=== PATIENT | male | born 1995 | race Caucasian/White ===

== ENCOUNTER 2019-03-01 20:14 | Emergency (ER) | payer OTHER, MEDICAID ==
[2019-03-01] MEDS: LORAZEPAM 1 MG TAB PO (22:06)
[2019-03-01] MEDS: KETOROLAC 60 MG INJ IM (22:06)
== END 2019-03-01 23:49 | disposition home or self-care (01) ==
LOC: FTE 20:14
DX: M54.5 Low back pain (principal); R10.9 Unspecified abdominal pain; F17.210 Nicotine dependence, cigarettes, uncomplicated
CPT/HCPCS: 71250; 74176; 96372; 99285-25